=== PATIENT | female | born 1995 ===

== ENCOUNTER 2017-09-19 13:27 | Inpatient (IN) | payer BC ==
[2017-09-19] MEDS ORDERED: HYDROmorphone 0.5 mg/0.5 ml ISec IVP STA (14:37)
--- NOTE | 2017-09-19 14:47 | ED PDOC ---
HPI: Back Time Seen by Provider: 09/19/17 14:30 Chief Complaint (Nursing): Back Pain Chief Complaint (Provider): Back Pain History Per: Patient, Family (Mother) History/Exam Limitations: no limitations Onset/Duration Of Symptoms: Days (x 6 months) Current Symptoms Are (Timing): Still Present Severity: Severe Exacerbating Factor(s): Other (Lying flat on her back) Additional Complaint(s): 22 year old female presents to the ER for evaluation of lower back pain, ongoing for 6 months but worsened yesterday. Patient states she has seen a neurologist, and completed physical therapy with no improvement. Patient has not seen neurosurgery. She had an MRI scheduled at [facility] yesterday, but when she attempted to lie flat for the study, the pain worsened and they were unable to complete the MRI. Today, mother notes the patient is having increased difficulty walking. Patient denies any incontinence of bowel or bladder. She report taking Flexeril and Naproxen without relief. Patient also describes having a sharp, shooting pain near her ribs. PMD: Dr. Wilfred Scott Past Medical History Reviewed: Historical Data, Nursing Documentation, Vital Signs Vital Signs: Last Vital Signs Temp 97.4 F L 09/19/17 13:51 Pulse 101 H 09/19/17 13:51 Resp 16 09/19/17 13:51 BP 125/92 H 09/19/17 13:51 Pulse Ox 100 09/19/17 13:51 - Family History Family History: States: Unknown Family Hx - Home Medications Home Medications: Ambulatory Orders Medication Instructions Recorded Gabapentin [Neurontin] 100 mg PO QAM 09/19/17 Gabapentin [Neurontin] 200 mg PO HS 09/19/17 tiZANidine [Zanaflex] 4 mg PO HS PRN 09/19/17 - Allergies Allergies/Adverse Reactions: Allergies Allergy/AdvReac Type Severity Reaction Status Date / Time No Known Allergies Allergy Verified 09/19/17 13:50 Review of Systems ROS Statement: Except As Marked, All Systems Reviewed And Found Negative Genitourinary Female: Negative for: Incontinence (or bowel or bladder) Musculoskeletal: Positive for: Back Pain Neurological: Positive for: Weakness (increased difficulty walking), Numbness ( pt has sensation, L > R) Physical Exam - Reviewed Nursing Documentation Reviewed: Yes Vital Signs Reviewed: Yes - Physical Exam Appears: Positive for: Uncomfortable, In Acute Distress (moderate painful distress) Head Exam: Positive for: ATRAUMATIC, NORMOCEPHALIC Skin: Positive for: Normal Color, Warm, Dry Eye Exam: Positive for: EOMI, Normal appearance, PERRL Neck: Positive for: Normal, Painless ROM, Supple Cardiovascular/Chest: Positive for: Regular Rate, Rhythm. Negative for: Murmur Respiratory: Positive for: Normal Breath Sounds. Negative for: Accessory Muscle Use, Respiratory Distress Gastrointestinal/Abdominal: Positive for: Normal Exam, Soft. Negative for: Tenderness Back: Positive for: Other (Paralumbar tenderness noted) Extremity: Positive for: Capillary Refill (< 2 sec), Other (Noted walking to bathroom with assistance from family. Exam limited secondary to patient's pain) . Negative for: Tenderness, Deformity, Swelling Neurologic/Psych: Positive for: Alert, Oriented (x 3), Other (Sensation intact bilaterally, but greater on left foot vs right. 4/5 plantar and dorsiflexion right foot. 5/5 plantar and dorsiflexion on left foot.) - Laboratory Results Result Diagrams: 09/19/17 14:57 09/19/17 14:57 Urine POC: Negative - ECG O2 Sat by Pulse Oximetry: 100 (RA) Pulse Ox Interpretation: Normal - Progress ED Course And Treament: D/W DR. SCOTT DILAUDID 0.5 MG IV X 1 DOSE ZOFRAN 4 MG IV X 1 DOSE MILD RELIEF PATIENT WAS SENT TO MRI BUT UNABLE TO BE PERFORMED DUE TO PAIN DILAUDID 1 MG IV X 2ND DOSE PATIENT SENT 2ND TIME, ALSO UNABLE TO PERFORM - Physician Consult Information Time Consulting Physican Contacted: 14:36 Physician Contacted: Wilfred Scott Outcome Of Conversation: Patient will be admitted for intractable back pain. Medical Decision Making Medical Decision Making: Time: 14:37 Initial Impression: 22 y/o female with lower back pain Initial Plan: * BMP * CBC w/ differential * PTT * Prothrombin time * Dilaudid 0.5 mg IVP * Zofran 4 mg IVP * Ordered MRIs for thoracic and lumbar spine Discussed case w/ Dr. Scott. Patient will be admitted. Scribe Attestation: Documented by Jo Canas, acting as a scribe for Pop Triana PA-C Provider Scribe Attestation: All medical record entries made by the Scribe were at my direction and personally dictated by me. I have reviewed the chart and agree that the record accurately reflects my personal performance of the history, physical exam, medical decision making, and the department course for this patient. I have also personally directed, reviewed, and agree with the discharge instructions and disposition. Disposition - Clinical Impression Clinical Impression: Back pain - Patient ED Disposition Is Patient to be Admitted: Yes - Disposition Disposition: Transfer of Care (hospitalized as observation) Disposition Time: 14:43 Condition: FAIR - Pt Status Changed To: Hospital Disposition Of: Observation
[2017-09-19 15:00] LABS: BASO # 0.1 K/uL (0.0-0.2); BASO % 0.3 % (0.0-2.0); EOS # 0.1 K/uL (0.0-0.7); EOS % 0.5 % (0.0-4.0); HEMATOCRIT 37.2 % (34.0-47.0); LYMPH # 3.4 K/uL (1.0-4.3); LYMPH % 18.5 % (20.0-40.0); MEAN CELL VOLUME 82.8 fl (81.0-99.0); MEAN CORPUSCULAR HEMOGLOBIN 26.9 pg (27.0-31.0); MEAN CORPUSCULAR HGB CONC 32.4 g/dL (33.0-37.0); MEAN PLATELET VOLUME 8.6 fl (7.2-11.7); MONO # 1.3 K/uL (0.0-0.8); MONO % 7.2 % (0.0-10.0); NEUT # 13.7 K/uL (1.8-7.0); NEUT % 73.5 % (50.0-75.0); NRBC % 0.1 % (0.0-0.0); RED CELL DISTRIBUTION WIDTH 14.4 % (11.5-14.5); WHITE BLOOD COUNT 18.6 K/uL (4.8-10.8)
[2017-09-19 15:23] LABS: PARTIAL THROMBOPLASTIN TIME 29.4 Seconds (25.6-37.1)
[2017-09-19 15:25] LABS: BLOOD UREA NITROGEN 14 mg/dl (7-17); CALCIUM 8.9 mg/dL (8.4-10.2); CARBON DIOXIDE 24 mmol/L (22-30); CHLORIDE 106 mmol/L (98-107); GFR AFRICAN-AMERICAN > 60; GLUCOSE,RANDOM 95 mg/dL (65-105); SODIUM 141 mmol/l (132-148)
[2017-09-19] MEDS ORDERED: DiphenhydrAMINE 50 mg/ml Inj IVP STA (21:16)
[2017-09-20] MEDS ORDERED: MethylPREDNISolone Depo 40 mg/ml Inj IM ONE (08:31)
[2017-09-20] MEDS ORDERED: Bupivacaine HCl 0.25% PF (30 ml) Inj IJ ONE (08:31)
[2017-09-20] MEDS ORDERED: Lidocaine 1% Inj (20ml) IJ ONE (08:31)
[2017-09-20] MEDS ORDERED: Iohexol 240 (10 ml) IVP ONE (08:31)
--- NOTE | 2017-09-20 09:02 | CP.PCM.PCO ---
Physician Communication Note - Physician Communication Note Physician Communication Note: Per Dr. Kwan, patient is medically cleared for proposed OR procedure.
[2017-09-20] MEDS ORDERED: MethylPREDNISolone Depo 40 mg/ml Inj ONE (09:20)
[2017-09-20] MEDS ORDERED: Bupivacaine HCl 0.25% PF (30 ml) Inj ONE (09:20)
[2017-09-20] MEDS ORDERED: Iohexol 300 10 ML ONE (09:21)
[2017-09-20] MEDS ORDERED: Propofol 10 mg/ml Inj (20 ML) ONE ×2 (09:24→09:33)
[2017-09-20] MEDS ORDERED: Lidocaine 2% MPF (5 ml) Inj ONE (09:26)
[2017-09-20] MEDS ORDERED: Lidocaine 1% Inj (20ml) ONE (09:31)
--- NOTE | 2017-09-20 09:34 | CP.PCM.HP ---
History of Present Illness - History of Present Illness History of Present Illness: 22 YR OLD FEMALE WITH SEVERE BACK PAIN,DIFFICULTY WALKING OR LYING DOWN X SEVERAL WEEKS--WORSE ON ADMISSION.SHE HAS BEEN TO [facility] ON MULTIPLE OCASSIONS BUT WAS DISCHARGED ON ANALGESICS AND ORAL STEROIDS.SYMPTOMS HOWEVER WORSENED.PHYSICAL THERAPY OUTPT HAS FAILED.SHE WAS UNABLE TO LAY DOWN FOR MRI CT SCAN IS REMARKABLE FOR HERNIATED DISC WITH PROTRUSSION AND NERVE IMPINGEMENT. SHE IS SCHEDULED FOR EMERGENT NERVE BLOCK AND WILL REQUIRE DISCECTOMY IN THE FUTURE. Present on Admission - Present on Admission Any Indicators Present on Admission: No History of DVT/PE: No History of Uncontrolled Diabetes: No Urinary Catheter: No Decubitus Ulcer Present: No History Surgical Site Infection Following: None Past Patient History - Past Medical History & Family History Past Medical History?: No - Past Social History Smoking Status: Former Smoker - CARDIAC Hx Cardiac Disorders: No - PULMONARY Hx Respiratory Disorders: No - NEUROLOGICAL Hx Neurological Disorder: No - HEENT Hx HEENT Problems: No - RENAL Hx Chronic Kidney Disease: No - ENDOCRINE/METABOLIC Hx Endocrine Disorders: No - HEMATOLOGICAL/ONCOLOGICAL Hx Blood Disorders: No Hx AIDS: No Hx Human Immunodeficiency Virus (HIV): No - INTEGUMENTARY Hx Dermatological Problems: No - MUSCULOSKELETAL/RHEUMATOLOGICAL Hx Musculoskeletal Disorders: Yes Hx Back Pain: Yes Hx Falls: Yes Hx Unsteady Gait: Yes - GASTROINTESTINAL Hx Gastrointestinal Disorders: No - GENITOURINARY/GYNECOLOGICAL Hx Genitourinary Disorders: No - PSYCHIATRIC Hx Psychophysiologic Disorder: No Hx Substance Use: No - SURGICAL HISTORY Hx Surgeries: No - ANESTHESIA Hx Anesthesia: No Hx Anesthesia Reactions: No Hx Malignant Hyperthermia: No Has any member of the family had a problem w/ anesthesia?: No Meds Allergies/Adverse Reactions: Allergies Allergy/AdvReac Type Severity Reaction Status Date / Time hydromorphone [From Dilaudid] AdvReac ITCHING Verified 09/20/17 06:39 Physical Exam - Constitutional Appears: In Acute Distress - Head Exam Head Exam: ATRAUMATIC, NORMAL INSPECTION, NORMOCEPHALIC - Eye Exam Eye Exam: EOMI, Normal appearance, PERRL Pupil Exam: NORMAL ACCOMODATION, PERRL - ENT Exam ENT Exam: Mucous Membranes Moist, Normal Exam - Neck Exam Neck exam: Positive for: Normal Inspection - Respiratory Exam Respiratory Exam: Clear to Auscultation Bilateral, NORMAL BREATHING PATTERN - Cardiovascular Exam Cardiovascular Exam: REGULAR RHYTHM - GI/Abdominal Exam GI & Abdominal Exam: Normal Bowel Sounds, Soft. absent: Tenderness - Rectal Exam Rectal Exam: NORMAL INSPECTION - Extremities Exam Extremities exam: Positive for: normal inspection - Back Exam Back exam: tenderness - Neurological Exam Neurological exam: Alert, CN II-XII Intact, Oriented x3, Reflexes Normal Additional comments: SEVERE BACK TENDERNESS WITH POOR RANGE OF MOTION OF EXTREMITIES UNABLE TO LIE FLAT IN BED OR WALK BECAUSE OF INTRACTABLE PAIN - Psychiatric Exam Psychiatric exam: Normal Affect, Normal Mood - Skin Skin Exam: Dry, Intact, Normal Color, Warm Results - Vital Signs Recent Vital Signs: Last Vital Signs Temp 98.1 F 09/20/17 08:13 Pulse 77 09/20/17 08:13 Resp 20 09/20/17 08:13 BP 110/74 09/20/17 08:13 Pulse Ox 97 09/20/17 08:13 - Labs Result Diagrams: 09/19/17 14:57 09/19/17 14:57 Labs: Laboratory Results - last 24 hr 09/19/17 09/19/17 09/19/17 14:57 14:57 14:57 WBC 18.6 H RBC 4.49 Hgb 12.1 Hct 37.2 MCV 82.8 MCH 26.9 L MCHC 32.4 L RDW 14.4 Plt Count 394 MPV 8.6 Neut % (Auto) 73.5 Lymph % (Auto) 18.5 L Yancey % (Auto) 7.2 Eos % (Auto) 0.5 Baso % (Auto) 0.3 Neut # 13.7 H Lymph # 3.4 Yancey # 1.3 H Eos # 0.1 Baso # 0.1 ESR PT 10.3 INR 0.9 APTT 29.4 Sodium 141 Potassium 4.0 Chloride 106 Carbon Dioxide 24 Anion Gap 15 BUN 14 Creatinine 0.6 L Est GFR ( Amer) > 60 Est GFR (Non-Af Amer) > 60 Random Glucose 95 Calcium 8.9 Urine Opiates Screen Urine Methadone Screen Ur Barbiturates Screen Ur Phencyclidine Scrn Ur Amphetamines Screen U Benzodiazepines Scrn U Oth Cocaine Metabols U Cannabinoids Screen 09/20/17 09/20/17 05:55 08:47 WBC RBC Hgb Hct MCV MCH MCHC RDW Plt Count MPV Neut % (Auto) Lymph % (Auto) Yancey % (Auto) Eos % (Auto) Baso % (Auto) Neut # Lymph # Yancey # Eos # Baso # ESR 40 H PT INR APTT Sodium Potassium Chloride Carbon Dioxide Anion Gap BUN Creatinine Est GFR ( Amer) Est GFR (Non-Af Amer) Random Glucose Calcium Urine Opiates Screen Positive H Urine Methadone Screen Negative Ur Barbiturates Screen Negative Ur Phencyclidine Scrn Negative Ur Amphetamines Screen Negative U Benzodiazepines Scrn Negative U Oth Cocaine Metabols Negative U Cannabinoids Screen Negative Assessment & Plan - Assessment and Plan (Free Text) Assessment: INTRACTABLE BACK PAIN DUE TO HERNIATED DISC AND NERVE COMPRESSION LEUKOCYTOSIS DUE TO STEROIDS Plan: MEDICALLY CLEARED FOR EMERGENCY NERVE BLOCK BY NEUROSURGERY - Date & Time Date: 09/20/17 Time: 09:38
[2017-09-20] MEDS ORDERED: Sodium Chloride 0.9% 500 ML IV ONE (09:41)
[2017-09-20] MEDS ORDERED: Lactated Ringer's 1,000 ML IV SCH (09:45)
--- NOTE | 2017-09-20 11:59 | CT ---
PROCEDURE: CT Lumbar Spine without contrast HISTORY: lower back pain COMPARISON: None. TECHNIQUE: Axial computed tomography images were obtained of the lumbar spine without the use of intravenous contrast. Coronal and sagittal reformatted images were created and reviewed. Radiation dose: Total exam DLP = mGy-cm. This CT exam was performed using one or more of the following dose reduction techniques: Automated exposure control, adjustment of the mA and/or kV according to patient size, and/or use of iterative reconstruction technique. FINDINGS: VERTEBRAE: Unremarkable. No fracture. Normal alignment. DISCS/SPINAL CANAL/NEURAL FORAMINA: L1-2: Unremarkable. L2-3: Unremarkable. L3-4: Central disc herniation with thecal sac indentation.. L4-5: Central disc herniation with thecal sac indentation. L5-S1: Large right paracentral disc herniation/extrusion with impingement upon the descending right S1 nerve root and right inferior foraminal encroachment. PARASPINAL SOFT TISSUES: Unremarkable. OTHER FINDINGS: None. IMPRESSION: L3-4: Central disc herniation with thecal sac indentation.. L4-5: Central disc herniation with thecal sac indentation. L5-S1: Large right paracentral disc herniation/extrusion with impingement upon the descending right S1 nerve root and right inferior foraminal encroachment. PARASPINAL SOFT TISSUES:
--- NOTE | 2017-09-20 17:23 | OP ---
PROCEDURE DATE: 09/20/2017 PREOPERATIVE DIAGNOSIS: Herniated lumbar disk at L5-S1. POSTOPERATIVE DIAGNOSIS: Herniated lumbar disk at L5-S1. PROCEDURE: Right L4-L5 and L5-S1 transforaminal epidural injection. Fluoroscopy helping for the procedure. SURGEON: Dominik Hernández MD. CO-SURGEON: Deins Fox MD. DESCRIPTION OF PROCEDURE: The patient was brought to the operating room, placed in a prone position. Back of the lumbar area thoroughly prepped and draped in standard sterile manner. After prepping and draping the area, lidocaine with the epinephrine has been injected. Two needles have been placed for the foramina of L5-S1 and L4-L5. Position had been confirmed and no CSF was aspirated and after that Marcaine mixed with the Depo Medrol injected into the neuroforamen at both places and the patient tolerated the procedure. After that, sterile dressings have been applied. Dominik Hernández MD
--- NOTE | 2017-09-20 18:30 | CP.PCM.CON ---
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 WILL FOLLOW BLOOD WORK UP PROS AND CONS ON EPIDURAL / SURGERY WERE DISCUSSED Past Patient History - Past Medical History & Family History Past Medical History?: No - Past Social History Smoking Status: Former Smoker - CARDIAC Hx Cardiac Disorders: No - PULMONARY Hx Respiratory Disorders: No - NEUROLOGICAL Hx Neurological Disorder: No - HEENT Hx HEENT Problems: No - RENAL Hx Chronic Kidney Disease: No - ENDOCRINE/METABOLIC Hx Endocrine Disorders: No - HEMATOLOGICAL/ONCOLOGICAL Hx Blood Disorders: No Hx AIDS: No Hx Human Immunodeficiency Virus (HIV): No - INTEGUMENTARY Hx Dermatological Problems: No - MUSCULOSKELETAL/RHEUMATOLOGICAL Hx Musculoskeletal Disorders: Yes Hx Back Pain: Yes Hx Falls: Yes Hx Unsteady Gait: Yes - GASTROINTESTINAL Hx Gastrointestinal Disorders: No - GENITOURINARY/GYNECOLOGICAL Hx Genitourinary Disorders: No - PSYCHIATRIC Hx Psychophysiologic Disorder: No Hx Substance Use: No - SURGICAL HISTORY Hx Surgeries: No - ANESTHESIA Hx Anesthesia: No Hx Anesthesia Reactions: No Hx Malignant Hyperthermia: No Has any member of the family had a problem w/ anesthesia?: No Meds Allergies/Adverse Reactions: Allergies Allergy/AdvReac Type Severity Reaction Status Date / Time hydromorphone [From Dilaudid] AdvReac ITCHING Verified 09/20/17 06:39 - Medications Medications: Current Medications Gabapentin (Neurontin) 100 mg PO QAM [facility] Last Admin: 09/20/17 08:34 Dose: 100 mg Gabapentin (Neurontin) 200 mg PO 1900 [facility] Last Admin: 09/19/17 19:31 Dose: 200 mg Morphine Sulfate (Morphine) 1 mg IVP Q4 PRN PRN Reason: Pain, severe (8-10) Last Admin: 09/20/17 17:34 Dose: 1 mg Ondansetron HCl (Zofran Tab) 4 mg PO Q4 PRN PRN Reason: Nausea/Vomiting Tizanidine HCl (Zanaflex) 4 mg PO HS PRN PRN Reason: Muscle spasm Results - Vital Signs Recent Vital Signs: Last Vital Signs Temp 97.8 F 09/20/17 15:44 Pulse 87 09/20/17 15:44 Resp 17 09/20/17 15:44 BP 104/61 09/20/17 15:44 Pulse Ox 97 09/20/17 15:44 - Labs Result Diagrams: 09/19/17 14:57 09/19/17 14:57 Labs: Laboratory Results - last 24 hr 09/20/17 09/20/17 09/20/17 05:55 05:55 05:55 ESR 40 H C-React Prot High Sens 2.12 Urine Opiates Screen Urine Methadone Screen Ur Barbiturates Screen Ur Phencyclidine Scrn Ur Amphetamines Screen U Benzodiazepines Scrn U Oth Cocaine Metabols U Cannabinoids Screen RPR Nonreactive Blood Type Blood Type Confirm Antibody Screen BBK History Checked 09/20/17 09/20/17 09/20/17 08:47 12:15 13:29 ESR C-React Prot High Sens Urine Opiates Screen Positive H Urine Methadone Screen Negative Ur Barbiturates Screen Negative Ur Phencyclidine Scrn Negative Ur Amphetamines Screen Negative U Benzodiazepines Scrn Negative U Oth Cocaine Metabols Negative U Cannabinoids Screen Negative RPR Blood Type A POSITIVE Blood Type Confirm A POSITIVE Antibody Screen Negative BBK History Checked No verified bt
--- NOTE | 2017-09-20 18:56 | MRI ---
PROCEDURE: MR LUMBAR SPINE WITHOUT CONTRAST HISTORY: r/o cord compression COMPARISON: None available. TECHNIQUE: Multiecho multiplanar sequences were performed through the lumbar spine without the use of intravenous contrast. FINDINGS: Normal lumbar lordosis. Straightening of the lumbar spine likely due to muscle spasm Vertebral body heights are preserved. Marrow signal unremarkable. Conus medullaris unremarkable at the level of T12 Paraspinal soft tissues are unremarkable. T12-L1: No disc herniation, spinal canal stenosis or neural foraminal narrowing. L1-2: No disc herniation, spinal canal stenosis or neural foraminal narrowing. L2-3: No disc herniation, spinal canal stenosis or neural foraminal narrowing. L3-4: Mild degenerative disc changes. Small broad-based disc bulge associated with posterior ligament hypertrophy which resulting in mild spinal stenosis. L4-5: [id number]-pn-[id number] degenerative disc changes. Mild narrowing of the intervertebral disc is space. Small broad-based disc bulge seen associated with mild posterior ligament hypertrophy resulting in mild thecal sac narrowing. L5-S1: Dnrp-[id number]-tmuapnbr degenerative disc changes. Large disc herniation seen which resulting moderate spinal and right lateral recess narrowing. There is [id number] right neural foramina stenosis. OTHER FINDINGS: None. IMPRESSION: Large disc herniation at L5-S1 associated with moderate thecal sac and right lateral recess narrowing. Mild to moderate right neural foraminal stenosis at L5-S1. [id number]-[id number] degenerative disc changes at L3-L4 and L4-L5 associated with small broad-based disc bulge.
--- NOTE | 2017-09-21 04:26 | CON ---
DATE: 09/20/2017 ATTENDING PHYSICIAN: Wilfred Kwan MD. LOCATION: The patient is in room number 664, bed 1. REASON FOR THE CONSULTATION: Intractable back pain. CHIEF COMPLAINT: The patient was brought into [facility] with a history of severe back pain. From a neurological point of view, I was called to evaluate her for further management. HISTORY OF PRESENT ILLNESS: Ms. Susan Reynolds is a 22-year-old moderately obese, right-handed Armenian-speaking female, presenting with about 6 to 7 month history of lower back pain which was started after strenuous exercise. Initially, she was treated with medication, steroids and narcotics at [facility]. Somewhere, somehow, she got improved. Since April or May 2017, pain got intensified, and again she was treated with steroids and narcotics at the [facility] twice. The patient had physical therapy which did not improve her symptoms. Then primary care physician scheduled her to see local neurologist. From there, she did have electrodiagnostic studies and she was diagnosed of having pinched nerve on her back and she was scheduled to have physical therapy as well as she had gabapentin. Since the pain has been more intense, she decided to come to hospital for further evaluation. She describes the pain is localized on her right buttock region, radiating down all the way to her heel with numbness of her second, third, and fourth toes. Pain is increased in all physical movement. The pain has been subsided following epidural injection this morning from 8/10 coming down to 2/10. She only has a nagging pain at present. These above episodes are not associating with any focal weakness, or bowel and bladder incontinence. No history of any other medical illness related to her problem. PAST MEDICAL HISTORY: Back pain. PERSONAL HISTORY: Denies smoking or alcohol use. 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 REVIEW OF SYSTEMS: A 12-point systems had been reviewed. From neuro, intractable back pain. PHYSICAL EXAMINATION: VITAL SIGNS: Blood pressure 104/61, mean arterial pressure of 82, respiratory rate 16, temperature afebrile. NECK: Supple. No carotid bruit. HEART: Heart sounds regular. CHEST: Fair air entry. EXTREMITIES: No edema in legs. NEUROLOGICAL EXAMINATION: Mental status examination: She is awake, alert, and oriented to person, place, and time. Speech is clear. Naming, repetition, fluency, comprehension all within normal. Cranial Nerves: Visual field intact. Pupils are reactive to light. Extraocular movement normal. No nystagmus. No facial sensory deficit. No facial asymmetry. Hearing is normal. Tongue is midline. Good gag. Motor Examination: On outstretched hand with eyes closed, no drift noted. Power is symmetric on either side in upper extremities at 5/5; lower extremities, she is able to lift left upper extremity, no restriction, right lower extremities SLR is 20 to 25 degree positive. Deep tendon reflexes: Biceps, brachioradialis, triceps; 2+ on either side, both knees are 2+, both ankles are 1+. Sensory examination: Showed decreased pinprick over L5 superimposed S1 dermatome on her right side. Gait is deferred at this time. DIAGNOSTIC DATA: CT of the lumbosacral spine was done which was reported as disc herniation over the thecal sac, impingement over L3-L4 and L4-L5 region with some disc herniation impinging on descending S1 root on the right side. LABORATORY DATA: WBC is , hemoglobin 12.1, hematocrit 37.2, platelets 394, ESR more than 40, PT 10.3, INR 0.9, PTT 29.4. Sodium 141, potassium 4.0, chloride 106, bicarbonate is 24, BUN of 14, GFR more than 60, C-reactive protein 2.12. Urine opioids was positive. RPR was nonreactive. CONCLUSION: Upon reviewing her history and neurological examination, Ms. Susan Reynolds is presenting with intractable lower back pain with a clinical diagnosis of right S1 radiculopathy, which is consistent with her CAT scan findings. RECOMMENDATIONS: 1. Pain management. At present, I do not recommend any steroids or any epidural injection for her problem. The patient understands her problem. 2. Mailroom Coordinator and weight reduction has been discussed with her extensively. Her other medications including gabapentin and muscle relaxants can be titrated slowly as she tolerates. I also strongly recommend her to have physical therapy. 1. The patient's condition all discussed with her father, stepmother, as well as her brother. I also recommended blood workup which can be followed as outpatient. Jaime Valdez MD
[2017-09-21 06:39] LABS: BASO % 0.3 % (0.0-2.0); EOS % 0.1 % (0.0-4.0); HEMATOCRIT 35.7 % (34.0-47.0); LYMPH # 3.2 K/uL (1.0-4.3); MEAN CELL VOLUME 83.2 fl (81.0-99.0); MEAN CORPUSCULAR HEMOGLOBIN 26.8 pg (27.0-31.0); MEAN CORPUSCULAR HGB CONC 32.3 g/dL (33.0-37.0); MEAN PLATELET VOLUME 8.7 fl (7.2-11.7); MONO # 0.9 K/uL (0.0-0.8); MONO % 5.5 % (0.0-10.0); NEUT # 12.7 K/uL (1.8-7.0); NEUT % 75.1 % (50.0-75.0); RED CELL DISTRIBUTION WIDTH 14.9 % (11.5-14.5); WHITE BLOOD COUNT 16.9 K/uL (4.8-10.8)
[2017-09-21 07:58] VITALS: BP 115/56; PULSE 78; RESP 20; TEMP 98.5; O2SAT 95
--- NOTE | 2017-09-21 08:11 | MRI ---
PROCEDURE: MR THORACIC SPINE WITHOUT CONTRAST HISTORY: back pain COMPARISON: None available. TECHNIQUE: Multiecho multiplanar sequences were performed through the thoracic spine without the use of intravenous contrast. FINDINGS: ALIGNMENT: Normal thoracic spinal alignment. Normal thoracic kyphosis. No fracture or spondylolisthesis identified. Normal Marrow signal is seen throughout the thoracic spine with moderate disc desiccation appreciate the mid thoracic intervertebral discs. The thoracic spinal cord appears normal course caliber contour and intrinsic signal with the conus medullaris terminating at the T12 vertebral body, also a normal appearing. Prevertebral paraspinal soft tissues appear diffusely unremarkable. VERTEBRA: Vertebral body height are preserved. DISCS: There is a small left paracentral disc herniation at T6-7 with extruded disc material identified cephalad, posterior to the mid to inferior pole T6 vertebral body which encroaches ventral nerve roots. No significant stenosis results. An even smaller right paracentral disc protrusion is appreciated at the T7-8 with right ventral nerve roots encroached. No significant stenosis results. The remaining central canal levels are widely patent. No significant neural foraminal stenosis is encountered throughout the thoracic spine. OTHER FINDINGS: None. IMPRESSION: 1. A small left paracentral disc herniation is identified at T6-7 with an extruded component cephalad into the anterior epidural space posterior to the mid to inferior T6 vertebral body. No significant stenosis although ventral nerve roots appear encroached. Bold in 2. A right paracentral disc protrusion is identified at T7-8 encroaching right ventral nerve roots without significant stenosis.
--- NOTE | 2017-09-21 08:45 | CP.PCM.DIS ---
Provider - Provider Date of Admission: 09/20/17 09:49 Attending physician: Wilfred Kwan MD Time Spent in preparation of Discharge (in minutes): 30 Diagnosis - Discharge Diagnosis (1) Back pain Status: Acute (2) Herniated intervertebral disc of lumbar spine Status: Acute Hospital Course - Lab Results Lab Results: Most Recent Lab Values WBC 16.9 K/uL (4.8-10.8) H 09/21/17 05:55 RBC 4.29 Mil/uL (3.80-5.20) 09/21/17 05:55 Hgb 11.5 g/dL (12.0-16.0) L 09/21/17 05:55 Hct 35.7 % (34.0-47.0) 09/21/17 05:55 MCV 83.2 fl (81.0-99.0) 09/21/17 05:55 MCH 26.8 pg (27.0-31.0) L 09/21/17 05:55 MCHC 32.3 g/dL (33.0-37.0) L 09/21/17 05:55 RDW 14.9 % (11.5-14.5) H 09/21/17 05:55 Plt Count 403 K/uL (130-400) H 09/21/17 05:55 MPV 8.7 fl (7.2-11.7) 09/21/17 05:55 Neut % (Auto) 75.1 % (50.0-75.0) H 09/21/17 05:55 Lymph % (Auto) 19.0 % (20.0-40.0) L 09/21/17 05:55 [place] % (Auto) 5.5 % (0.0-10.0) 09/21/17 05:55 Eos % (Auto) 0.1 % (0.0-4.0) 09/21/17 05:55 Baso % (Auto) 0.3 % (0.0-2.0) 09/21/17 05:55 Neut # 12.7 K/uL (1.8-7.0) H 09/21/17 05:55 Lymph # 3.2 K/uL (1.0-4.3) 09/21/17 05:55 [place] # 0.9 K/uL (0.0-0.8) H 09/21/17 05:55 Eos # 0.0 K/uL (0.0-0.7) 09/21/17 05:55 Baso # 0.0 K/uL (0.0-0.2) 09/21/17 05:55 ESR 40 mm/hr (0-20) H 09/20/17 05:55 PT 10.3 Seconds (9.8-13.1) 09/19/17 14:57 INR 0.9 (0.9-1.2) 09/19/17 14:57 APTT 29.4 Seconds (25.6-37.1) 09/19/17 14:57 Sodium 141 mmol/l (132-148) 09/19/17 14:57 Potassium 4.0 MMOL/L (3.6-5.0) 09/19/17 14:57 Chloride 106 mmol/L (98-107) 09/19/17 14:57 Carbon Dioxide 24 mmol/L (22-30) 09/19/17 14:57 Anion Gap 15 (10-20) 09/19/17 14:57 BUN 14 mg/dl (7-17) 09/19/17 14:57 Creatinine 0.6 mg/dl (0.7-1.2) L 09/19/17 14:57 Est GFR ( Amer) > 60 09/19/17 14:57 Est GFR (Non-Af Amer) > 60 09/19/17 14:57 Random Glucose 95 mg/dL (65-105) 09/19/17 14:57 Calcium 8.9 mg/dL (8.4-10.2) 09/19/17 14:57 C-React Prot High Sens 2.12 mg/L (1.00-3.00) 09/20/17 05:55 Urine Opiates Screen Positive (NEGATIVE) H 09/20/17 08:47 Urine Methadone Screen Negative (NEGATIVE) 09/20/17 08:47 Ur Barbiturates Screen Negative (NEGATIVE) 09/20/17 08:47 Ur Phencyclidine Scrn Negative (NEGATIVE) 09/20/17 08:47 Ur Amphetamines Screen Negative (NEGATIVE) 09/20/17 08:47 U Benzodiazepines Scrn Negative (NEGATIVE) 09/20/17 08:47 U Oth Cocaine Metabols Negative (NEGATIVE) 09/20/17 08:47 U Cannabinoids Screen Negative (NEGATIVE) 09/20/17 08:47 RPR Nonreactive (NONREACTIVE) 09/20/17 05:55 Blood Type A POSITIVE 09/20/17 12:15 Blood Type Confirm A POSITIVE 09/20/17 13:29 Antibody Screen Negative 09/20/17 12:15 BBK History Checked No verified bt 09/20/17 12:15 - Hospital Course Hospital Course: back pain improved with nerve block Discharge Exam - Head Exam Head Exam: ATRAUMATIC, NORMAL INSPECTION, NORMOCEPHALIC - Eye Exam Eye Exam: EOMI, Normal appearance, PERRL Pupil Exam: NORMAL ACCOMODATION, PERRL - GI/Abdominal Exam GI & Abdominal Exam: Normal Bowel Sounds - Rectal Exam Rectal Exam: NORMAL INSPECTION - Exam Exam: Circumcision, NORMAL INSPECTION External exam: NORMAL EXTERNAL EXAM Speculum exam: NORMAL SPECULUM EXAM Bimanual exam: NORMAL BIMANUAL EXAM - Back Exam Back exam: tenderness - Neurological Exam Neurological exam: Alert, CN II-XII Intact, Normal Gait, Oriented x3, Reflexes Normal - Psychiatric Exam Psychiatric exam: Normal Affect, Normal Mood - Skin Skin Exam: Dry, Intact, Normal Color, Warm Discharge Plan - Follow Up Plan Condition: FAIR Disposition: HOME/ ROUTINE Patient education suggested?: Yes Instructions: Acute Low Back Pain (DC) Referrals: Dominik Hernández MD [Staff Provider] - Jaime Valdez MD [Medical Doctor] - Wilfred Kwan MD [Family Provider] -
--- NOTE | 2017-09-21 18:00 | RAD ---
PROCEDURE: Lumbar epidural HISTORY: PAIN MANAGEMENT COMPARISON: None TECHNIQUE: Standard protocol for this study/examination. FINDINGS: Total fluoroscopic time (continuous mode) utilized during the procedure: 26.2 seconds. Total exam DLP: (mGy): 15.07. IMPRESSION: Less than 1 hr fluoroscopic time utilized during performance of the procedure.
== END 2017-09-21 10:38 | disposition home or self-care (01) | DRG 552 ==
LOC: H.ER 13:27 → H.ERHOLD 14:43 → H.MEDSURG1 17:41 → OBSVTOIN 09-20 09:49
PROVIDERS: ADMIT Internal Medicine Pulmonary Disease; ATTEND Internal Medicine Pulmonary Disease
PROC: 3E0R33Z Introduction of Anti-inflammatory into Spinal Canal, Percutaneous Approach (ICD-10-PCS; 2017-09-20)
PROC: 3E0R3BZ Introduction of Anesthetic Agent into Spinal Canal, Percutaneous Approach (ICD-10-PCS; principal; 2017-09-20 09:45)
DX: M51.17 Intervertebral disc disorders with radiculopathy, lumbosacral region (principal); E66.01 Morbid (severe) obesity due to excess calories; Z68.39 Body mass index [BMI] 39.0-39.9, adult; Z87.891 Personal history of nicotine dependence; Z88.5 Allergy status to narcotic agent; D72.829 Elevated white blood cell count, unspecified; T38.0X5A Adverse effect of glucocorticoids and synthetic analogues, initial encounter